=== PATIENT | male | born 1945 | race Caucasian/White ===

== ENCOUNTER 2016-06-26 22:45 | Inpatient (IN) | payer BC, OTHER ==
[~2016-06-26] VITALS: Ht 182.9 cm; Wt 84.5 kg
[~2016-06-26 22:45] MED LIST: ASPIR-TRIN325 M1 PO; ATORVASTATIN CA40 MG PO; CLOPIDOGREL75 MG PO; FOLIC ACID1 MG PO; LATANOPROST2.5 ML BOTH EYES; LISINOPRIL20 MG PO; VYTORIN 10/81 TABLET PO
[2016-06-27] VITALS (7 sets, daily range): BP systolic 126–151; BP diastolic 63–70
[2016-06-27 00:33] LABS: EOSINOPHIL (%) 1.9 % (0-5); EOSINOPHIL COUNT 0.2 K/uL (0-0.3); HEMATOCRIT 38.6 % (38.0-50.0); IMMATURE GRANULOCYTE (%) 0.8 % (0.0-0.7); IMMATURE GRANULOCYTE COUNT 0.1 K/uL; INSTRUMENT ABS NEUTROPHIL CT 6.7 K/uL; MCH 30.3 PG (29.0-34.0); MCHC 34.2 G/DL (30.0-36.0); MCV 88.7 FL (86-99); MEAN PLAT.VOLUME 8.3 uM^3 (9.0-12.4); MONOCYTE (%) 11.3 % (3-12); NEUTROPHIL (%) 74.7 % (45-76); NEUTROPHIL COUNT 6.7 K/uL (1.8-6.4); PLATELET COUNT 200 K/uL (156-360); RBC DIS.WIDTH-CV 13.9 % (11.8-14.6); RBC DIS.WIDTH-SD 45.4 % (39-53); RED BLOOD COUNT 4.35 M/uL (4.00-5.50)
[2016-06-27 00:45] LABS: INTER. NORMALIZED RATIO 1.1; PTT 26.4 (25-32)
[2016-06-27 00:46] LABS: CHLORIDE 109 mEq/L (99-109); POTASSIUM 3.5 mEq/L (3.7-5.4); SODIUM 139 mEq/L (136-147)
[2016-06-27 00:48] LABS: GLUCOSE 117 mg/dL (70-99)
[2016-06-27 00:49] LABS: ANION GAP 12 MEQ/L (2-14)
[2016-06-27 00:52] LABS: GFR ESTIMATE (CALCULATED) 46 mL/min/
[2016-06-27 00:53] LABS: UREA NITROGEN (BUN) 25 mg/dL (9-23)
[2016-06-27] MEDS ORDERED: LIPITOR80 MG PO (01:30)
[2016-06-27] MEDS ORDERED: PLAVIX75 MG PO (01:31)
[2016-06-27 03:56] LABS: SAMPLE HEMOLYSIS CHECK 0; SAMPLE ICTERIC CHECK 0; SAMPLE LIPEMIA CHECK 0
[2016-06-27 04:02] LABS: HDL CHOLESTEROL 33 MG/DL (Desirable>=40); LDL CHOLESTEROL 65 mg/dL (Desirable<100); NON-HDL CHOLESTEROL 95 mg/dL (Desirable<160); TOTAL CHOLESTEROL 128 mg/dL (Desirable<200); TRIGLYCERIDES 151 MG/DL (Normal: <150)
[2016-06-27 07:38] LABS: ALKALINE PHOSPHATASE 51 IU/L (3-129); ANION GAP 6 MEQ/L (2-14); CHLORIDE 112 MEQ/L (99-109); GFR ESTIMATE (CALCULATED) 49 mL/min/; GLUCOSE 94 mg/dL (70-99); POTASSIUM 3.6 MEQ/L (3.7-5.4); SAMPLE HEMOLYSIS CHECK 0; SAMPLE ICTERIC CHECK 0; SAMPLE LIPEMIA CHECK 0; SODIUM 140 MEQ/L (136-147); TOTAL BILIRUBIN 0.7 MG/DL (0.0-1.0); UREA NITROGEN (BUN) 22 mg/dL (9-23)
[2016-06-27 09:20] LABS: Estimated Average Glucose 134 mg/dL (70-123); HEMOGLOBIN A1c (GLYCOHEMOGLOB) 6.3 % HGB (Below 5.7)
[2016-06-28 03:27] VITALS: BP 155/87
[2016-06-28 07:38] VITALS: BP 166/79
[2016-06-28 11:16] VITALS: BP 137/63
[2016-06-28 16:03] VITALS: BP 141/72
[2016-06-28 19:50] VITALS: BP 152/76
[2016-06-29 00:25] VITALS: BP 137/75
[2016-06-29 04:14] VITALS: BP 138/65
[2016-06-29 07:53] VITALS: BP 155/80
[2016-06-29 10:54] VITALS: BP 138/66
== END 2016-06-29 14:15 | disposition home or self-care (01) | DRG 65 ==
LOC: EME → EDBD 22:45 → EME 22:45 → EDOF 06-27 02:23 → 5WEST 06-27 03:15 → 5SOUTH 06-27 11:52 → 5WEST 06-27 11:52 → 5SOUTH 06-27 23:16
PROVIDERS: Emergency Medicine; Hospitalist
DX: I63.9 Cerebral infarction, unspecified (principal); N17.9 Acute kidney failure, unspecified; I73.9 Peripheral vascular disease, unspecified; N18.2 Chronic kidney disease, stage 2 (mild); I12.9 Hypertensive chronic kidney disease with stage 1 through stage 4 chronic kidney disease, or unspecified chronic kidney disease; Z95.1 Presence of aortocoronary bypass graft; I25.10 Atherosclerotic heart disease of native coronary artery without angina pectoris; E87.6 Hypokalemia; E78.5 Hyperlipidemia, unspecified; G31.9 Degenerative disease of nervous system, unspecified; Z87.891 Personal history of nicotine dependence; I48.91 Unspecified atrial fibrillation
CPT/HCPCS: 70450; 70496; 70551; 80048; 80053; 80061; 83036; 85025; 85610; 85730; 93005; 93306; 93880; 99281; 99285; C8923; J1650; J7030

== ENCOUNTER 2016-07-02 14:58 | Inpatient (IN) | payer BC, OTHER ==
[~2016-07-02] VITALS: Ht 182.9 cm; Wt 84.4 kg
[~2016-07-02 14:58] MED LIST changes: +LIPITOR80 MG PO; +PLAVIX75 MG PO
[2016-07-02 16:02] LABS: CHLORIDE 108 mEq/L (99-109); POTASSIUM 3.8 mEq/L (3.7-5.4); SODIUM 139 mEq/L (136-147)
[2016-07-02 16:03] LABS: GLUCOSE 102 mg/dL (70-99)
[2016-07-02 16:04] LABS: BASOPHIL COUNT 0.1 K/uL (0-0.1); EOSINOPHIL (%) 0.8 % (0-5); EOSINOPHIL COUNT 0.2 K/uL (0-0.3); HEMATOCRIT 37.7 % (38.0-50.0); IMMATURE GRANULOCYTE (%) 0.6 % (0.0-0.7); IMMATURE GRANULOCYTE COUNT 0.1 K/uL; INSTRUMENT ABS NEUTROPHIL CT 15.8 K/uL; LYMPHOCYTE COUNT 0.9 K/uL (1.0-2.8); MCH 29.8 PG (29.0-34.0); MCHC 33.7 G/DL (30.0-36.0); MCV 88.5 FL (86-99); MEAN PLAT.VOLUME 8.3 uM^3 (9.0-12.4); MONOCYTE (%) 7.7 % (3-12); MONOCYTE COUNT 1.4 K/uL (0-0.8); NEUTROPHIL (%) 85.8 % (45-76); NEUTROPHIL COUNT 15.8 K/uL (1.8-6.4); PLATELET COUNT 204 K/uL (156-360); RBC DIS.WIDTH-CV 13.4 % (11.8-14.6); RBC DIS.WIDTH-SD 43.1 % (39-53); RED BLOOD COUNT 4.26 M/uL (4.00-5.50); WHITE BLOOD COUNT 18.4 K/uL (4.1-10.2)
[2016-07-02 16:05] LABS: ANION GAP 9 MEQ/L (2-14)
[2016-07-02 16:07] LABS: GFR ESTIMATE (CALCULATED) 49 mL/min/
[2016-07-02 16:08] LABS: UREA NITROGEN (BUN) 14 mg/dL (9-23)
[2016-07-02 17:39] LABS: ADD MIUA? YES; BILIRUBIN NEGATIVE; BLOOD LARGE; COLOR YELLOW ((YELLOW)); GLUCOSE (STRIP) NEGATIVE; KETONES 5; LEUKOCYTES SMALL; NITRITE NEGATIVE; PROTEIN (STRIP) 100; UROBILINOGEN 0.2 MG/DL (0.2-1.0)
[2016-07-02 18:04] LABS: RED BLOOD CELLS TNTC /HPF (0-5)
[2016-07-02 18:05] LABS: EPITHELIAL CELLS RARE /HPF; MUCUS RARE /LPF; WHITE BLOOD CELLS 40-50 /HPF (0-5)
[2016-07-02 18:06] LABS: BACTERIA 2+ /HPF; UCUL ADDED? YES
[2016-07-02] MEDS ORDERED: ATORVASTATIN CA80 MG PO (20:53)
[2016-07-03] VITALS (7 sets, daily range): BP systolic 123–171; BP diastolic 62–79
[2016-07-03 07:02] LABS: HEMATOCRIT 34.5 % (38.0-50.0); MCH 29.9 PG (29.0-34.0); MCHC 33.3 G/DL (30.0-36.0); MCV 89.8 FL (86-99); MEAN PLAT.VOLUME 8.9 uM^3 (9.0-12.4); PLATELET COUNT 203 K/uL (156-360); RBC DIS.WIDTH-CV 13.8 % (11.8-14.6); RED BLOOD COUNT 3.84 M/uL (4.00-5.50); WHITE BLOOD COUNT 20.7 K/uL (4.1-10.2)
[2016-07-03 07:31] LABS: ANION GAP 10 MEQ/L (2-14); CHLORIDE 108 MEQ/L (99-109); GFR ESTIMATE (CALCULATED) 53 mL/min/; GLUCOSE 91 mg/dL (70-99); POTASSIUM 3.4 MEQ/L (3.7-5.4); SAMPLE HEMOLYSIS CHECK 0; SAMPLE ICTERIC CHECK 0; SAMPLE LIPEMIA CHECK 0; SODIUM 140 MEQ/L (136-147); UREA NITROGEN (BUN) 13 mg/dL (9-23)
[2016-07-04 03:33] VITALS: BP 105/59
[2016-07-04 06:10] LABS: EOSINOPHIL (%) 0.8 % (0-5); EOSINOPHIL COUNT 0.1 K/uL (0-0.3); HEMATOCRIT 32.1 % (38.0-50.0); IMMATURE GRANULOCYTE (%) 0.5 % (0.0-0.7); IMMATURE GRANULOCYTE COUNT 0.1 K/uL; LYMPHOCYTE COUNT 1.4 K/uL (1.0-2.8); MCH 30.1 PG (29.0-34.0); MCHC 33.6 G/DL (30.0-36.0); MCV 89.4 FL (86-99); MEAN PLAT.VOLUME 9.2 uM^3 (9.0-12.4); MONOCYTE (%) 7.7 % (3-12); MONOCYTE COUNT 1.3 K/uL (0-0.8); NEUTROPHIL (%) 82.5 % (45-76); PLATELET COUNT 200 K/uL (156-360); RBC DIS.WIDTH-SD 46.1 % (39-53); RED BLOOD COUNT 3.59 M/uL (4.00-5.50); WHITE BLOOD COUNT 16.9 K/uL (4.1-10.2)
[2016-07-04 06:34] LABS: ANION GAP 7 MEQ/L (2-14); CHLORIDE 109 MEQ/L (99-109); GFR ESTIMATE (CALCULATED) 53 mL/min/; GLUCOSE 98 mg/dL (70-99); MAGNESIUM 1.7 mg/dl (1.3-2.7); POTASSIUM 3.5 MEQ/L (3.7-5.4); SAMPLE HEMOLYSIS CHECK 0; SAMPLE ICTERIC CHECK 0; SAMPLE LIPEMIA CHECK 0; SODIUM 140 MEQ/L (136-147); UREA NITROGEN (BUN) 17 mg/dL (9-23)
[2016-07-04 07:35] VITALS: BP 138/76
[2016-07-04 12:50] VITALS: BP 144/78
[2016-07-04 16:15] VITALS: BP 154/80
[2016-07-04 19:50] VITALS: BP 135/75
[2016-07-05 00:14] VITALS: BP 132/68
[2016-07-05 04:00] VITALS: BP 133/62
[2016-07-05 06:53] LABS: EOSINOPHIL (%) 4.1 % (0-5); EOSINOPHIL COUNT 0.4 K/uL (0-0.3); HEMATOCRIT 31.7 % (38.0-50.0); IMMATURE GRANULOCYTE (%) 0.5 % (0.0-0.7); IMMATURE GRANULOCYTE COUNT 0.1 K/uL; INSTRUMENT ABS NEUTROPHIL CT 7.6 K/uL; LYMPHOCYTE COUNT 1.5 K/uL (1.0-2.8); MCH 29.6 PG (29.0-34.0); MCHC 33.1 G/DL (30.0-36.0); MCV 89.3 FL (86-99); MEAN PLAT.VOLUME 9.1 uM^3 (9.0-12.4); MONOCYTE (%) 10.3 % (3-12); MONOCYTE COUNT 1.1 K/uL (0-0.8); NEUTROPHIL (%) 70.9 % (45-76); NEUTROPHIL COUNT 7.6 K/uL (1.8-6.4); PLATELET COUNT 213 K/uL (156-360); RBC DIS.WIDTH-CV 13.8 % (11.8-14.6); RBC DIS.WIDTH-SD 45.4 % (39-53); RED BLOOD COUNT 3.55 M/uL (4.00-5.50); WHITE BLOOD COUNT 10.7 K/uL (4.1-10.2)
[2016-07-05 08:14] LABS: ANION GAP 4 MEQ/L (2-14); CHLORIDE 109 MEQ/L (99-109); GFR ESTIMATE (CALCULATED) 58 mL/min/; GLUCOSE 96 mg/dL (70-99); MAGNESIUM 1.7 mg/dl (1.3-2.7); POTASSIUM 3.6 MEQ/L (3.7-5.4); SAMPLE HEMOLYSIS CHECK 0; SAMPLE ICTERIC CHECK 0; SAMPLE LIPEMIA CHECK 0; SODIUM 139 MEQ/L (136-147); UREA NITROGEN (BUN) 15 mg/dL (9-23)
[2016-07-05 08:19] VITALS: BP 165/80
[2016-07-05 12:00] VITALS: BP 157/78
[2016-07-05] MEDS ORDERED: BACTRIM,SEPT1 TABLET PO (12:40)
== END 2016-07-05 13:57 | disposition home or self-care (01) | DRG 872 ==
LOC: EME 14:58 → EDOF 22:20 → 5WEST 22:20
PROVIDERS: Hospitalist; Internal Medicine
DX: A02.1 Salmonella sepsis (principal); I72.8 Aneurysm of other specified arteries; N18.3 Chronic kidney disease, stage 3 (moderate); Z95.1 Presence of aortocoronary bypass graft; N30.01 Acute cystitis with hematuria; E87.6 Hypokalemia; I12.9 Hypertensive chronic kidney disease with stage 1 through stage 4 chronic kidney disease, or unspecified chronic kidney disease; I25.10 Atherosclerotic heart disease of native coronary artery without angina pectoris; Z86.73 Personal history of transient ischemic attack (TIA), and cerebral infarction without residual deficits; I73.9 Peripheral vascular disease, unspecified; E78.5 Hyperlipidemia, unspecified; Z87.891 Personal history of nicotine dependence
CPT/HCPCS: 74176; 80048; 81003; 83605; 83735; 85025; 85027; 87040; 87077; 99281; 99285; G0378; J0696; J7030; J7050

== ENCOUNTER 2016-07-19 21:18 | Emergency (ER) | payer BC, OTHER ==
[~2016-07-19] VITALS: Ht 182.9 cm; Wt 81.3 kg
[~2016-07-19 21:18] MED LIST changes: +ATORVASTATIN CA80 MG PO; +BACTRIM,SEPT1 TABLET PO
[2016-07-19 22:20] LABS: HEMATOCRIT 36.7 % (38.0-50.0); MCH 30.5 PG (29.0-34.0); MCHC 33.8 G/DL (30.0-36.0); MCV 90.2 FL (86-99); PLATELET COUNT 214 K/uL (156-360); RBC DIS.WIDTH-CV 14.4 % (11.8-14.6); RBC DIS.WIDTH-SD 46.9 % (39-53); RED BLOOD COUNT 4.07 M/uL (4.00-5.50); WHITE BLOOD COUNT 11.4 K/uL (4.1-10.2)
[2016-07-19 22:28] LABS: CHLORIDE 111 mEq/L (99-109); POTASSIUM 4.3 mEq/L (3.7-5.4); SODIUM 141 mEq/L (136-147)
[2016-07-19 22:30] LABS: GLUCOSE 142 mg/dL (70-99)
[2016-07-19 22:31] LABS: ANION GAP 10 MEQ/L (2-14)
[2016-07-19 22:34] LABS: GFR ESTIMATE (CALCULATED) 40 mL/min/
[2016-07-19 22:35] LABS: UREA NITROGEN (BUN) 22 mg/dL (9-23)
[2016-07-19 22:41] LABS: TROP-I INTERPRETATION NEGATIVE; TROPONIN-I 0.01 ng/mL (0.0-0.30)
[2016-07-19 23:09] LABS: ADD MIUA? YES; BILIRUBIN NEGATIVE; BLOOD MODERATE; COLOR YELLOW ((YELLOW)); GLUCOSE (STRIP) NEGATIVE; KETONES NEGATIVE; LEUKOCYTES LARGE; NITRITE NEGATIVE; PROTEIN (STRIP) 30; SPECIFIC GRAVITY 1.019 (1.000-1.030); UROBILINOGEN 0.2 MG/DL (0.2-1.0)
[2016-07-20] MEDS ORDERED: LEVAQUIN750 MG PO (00:31)
[2016-07-20 00:44] LABS: WHITE BLOOD CELLS TNTC /HPF (0-5)
[2016-07-20 00:45] LABS: BACTERIA 2+ /HPF; CASTS NONE SEEN /LPF; CRYSTALS NONE SEEN; EPITHELIAL CELLS RARE /HPF; MUCUS NONE SEEN /LPF; UCUL ADDED? YES
[2016-07-20 00:49] VITALS: BP 150/83
== END 2016-07-20 00:56 | disposition home or self-care (01) ==
LOC: EME 21:18
PROVIDERS: Emergency Medicine
DX: N39.0 Urinary tract infection, site not specified (principal); G93.40 Encephalopathy, unspecified; E11.9 Type 2 diabetes mellitus without complications; E78.5 Hyperlipidemia, unspecified; I10 Essential (primary) hypertension; Z87.442 Personal history of urinary calculi; Z86.73 Personal history of transient ischemic attack (TIA), and cerebral infarction without residual deficits; Z95.1 Presence of aortocoronary bypass graft; Z87.891 Personal history of nicotine dependence
CPT/HCPCS: 71020; 80048; 81003; 84484; 85027; 87077; 87086; 93005; 99281; 99284

== ENCOUNTER 2016-10-16 14:42 | Inpatient (IN) | payer BC, OTHER ==
[~2016-10-16] VITALS: Ht 182.9 cm; Wt 78.5 kg
[~2016-10-16 14:42] MED LIST changes: +LEVAQUIN750 MG PO
[2016-10-16 16:27] LABS: BASOPHIL COUNT 0.1 K/uL (0-0.1); EOSINOPHIL COUNT 0.9 K/uL (0-0.3); HEMATOCRIT 37.1 % (38.0-50.0); IMMATURE GRANULOCYTE (%) 0.3 % (0.0-0.7); INSTRUMENT ABS NEUTROPHIL CT 8.6 K/uL; LYMPHOCYTE COUNT 1.4 K/uL (1.0-2.8); MCH 29.9 PG (29.0-34.0); MCHC 33.4 G/DL (30.0-36.0); MCV 89.4 FL (86-99); MONOCYTE (%) 5.2 % (3-12); MONOCYTE COUNT 0.6 K/uL (0-0.8); NEUTROPHIL (%) 74.3 % (45-76); NEUTROPHIL COUNT 8.6 K/uL (1.8-6.4); PLATELET COUNT 206 K/uL (156-360); RBC DIS.WIDTH-CV 13.4 % (11.8-14.6); RBC DIS.WIDTH-SD 44.1 % (39-53); RED BLOOD COUNT 4.15 M/uL (4.00-5.50); WHITE BLOOD COUNT 11.5 K/uL (4.1-10.2)
[2016-10-16 16:37] LABS: CHLORIDE 108 mEq/L (99-109)
[2016-10-16 16:38] LABS: POTASSIUM 4.4 mEq/L (3.7-5.4); SODIUM 140 mEq/L (136-147)
[2016-10-16 16:39] LABS: GLUCOSE 119 mg/dL (70-99)
[2016-10-16 16:41] LABS: ANION GAP 10 MEQ/L (2-14)
[2016-10-16 16:41] LABS: PROTHROMBIN TIME 10.6 (9.2-11.2); PTT 26.7 (25-32)
[2016-10-16 16:43] LABS: GFR ESTIMATE (CALCULATED) 33 mL/min/
[2016-10-16 16:44] LABS: UREA NITROGEN (BUN) 28 mg/dL (9-23)
[2016-10-16 16:50] LABS: TROP-I INTERPRETATION NEGATIVE; TROPONIN-I 0.02 ng/mL (0.0-0.30)
[2016-10-16 16:55] LABS: ADD MIUA? YES; BILIRUBIN NEGATIVE; BLOOD SMALL; COLOR YELLOW ((YELLOW)); GLUCOSE (STRIP) NEGATIVE; KETONES NEGATIVE; LEUKOCYTES NEGATIVE; NITRITE NEGATIVE; PROTEIN (STRIP) NEGATIVE; SPECIFIC GRAVITY 1.013 (1.000-1.030)
[2016-10-16 17:00] LABS: BACTERIA RARE /HPF; EPITHELIAL CELLS RARE /HPF; MUCUS TRACE /LPF; RED BLOOD CELLS 0-5 /HPF (0-5); WHITE BLOOD CELLS 0-5 /HPF (0-5)
[2016-10-16] MEDS ORDERED: CYANOCOBAL1000 MCG/2 IM (18:14)
[2016-10-16 21:24] VITALS: BP 205/96
[2016-10-16 23:47] VITALS: BP 198/103
[2016-10-17 04:02] VITALS: BP 202/94
[2016-10-17 06:04] LABS: HEMATOCRIT 35.9 % (38.0-50.0); MCH 30.4 PG (29.0-34.0); MCHC 34.3 G/DL (30.0-36.0); MCV 88.9 FL (86-99); MEAN PLAT.VOLUME 8.3 uM^3 (9.0-12.4); PLATELET COUNT 198 K/uL (156-360); RBC DIS.WIDTH-CV 13.2 % (11.8-14.6); RBC DIS.WIDTH-SD 43.5 % (39-53); RED BLOOD COUNT 4.04 M/uL (4.00-5.50); WHITE BLOOD COUNT 15.6 K/uL (4.1-10.2)
[2016-10-17 07:39] VITALS: BP 162/73
[2016-10-17 11:14] VITALS: BP 154/69
[2016-10-17 14:18] VITALS: BP 163/75
[2016-10-17 20:10] VITALS: BP 177/80
[2016-10-17 23:31] VITALS: BP 171/83
[2016-10-18 04:10] VITALS: BP 150/79
[2016-10-18 07:48] VITALS: BP 158/85
[2016-10-18 11:22] VITALS: BP 147/86
[2016-10-18 14:15] LABS: HDL CHOLESTEROL 35 MG/DL (Desirable>=40); LDL CHOLESTEROL 71 mg/dL (Desirable<100); NON-HDL CHOLESTEROL 96 mg/dL (Desirable<160); TOTAL CHOLESTEROL 131 mg/dL (Desirable<200); TRIGLYCERIDES 125 MG/DL (Normal: <150)
[2016-10-19 07:43] LABS: Estimated Average Glucose 128 mg/dL (70-123); HEMOGLOBIN A1c (GLYCOHEMOGLOB) 6.1 % HGB (Below 5.7)
== END 2016-10-18 14:30 | DRG 66 ==
LOC: EME 14:42 → EDOF 18:41 → 5SOUTH 20:45
PROVIDERS: Emergency Medicine; Hospitalist
DX: I63.9 Cerebral infarction, unspecified (principal); E11.22 Type 2 diabetes mellitus with diabetic chronic kidney disease; I12.9 Hypertensive chronic kidney disease with stage 1 through stage 4 chronic kidney disease, or unspecified chronic kidney disease; N18.3 Chronic kidney disease, stage 3 (moderate); Z86.73 Personal history of transient ischemic attack (TIA), and cerebral infarction without residual deficits; E78.5 Hyperlipidemia, unspecified; R32 Unspecified urinary incontinence; Z87.891 Personal history of nicotine dependence; Z95.1 Presence of aortocoronary bypass graft; I73.9 Peripheral vascular disease, unspecified; I25.10 Atherosclerotic heart disease of native coronary artery without angina pectoris
CPT/HCPCS: 70450; 70551; 71010; 80048; 80061; 81003; 83036; 84484; 85025; 85027; 85610; 85730; 87086; 93005; 99281; 99285; J1644; J7030; J7040

== ENCOUNTER → 2016-11-06 | Outpatient (CLI) | payer BC, OTHER ==
[~2016-11-06] VITALS: Ht 182.9 cm; Wt 78.5 kg
[~2016-11-06] MED LIST changes: +APRESOLINE50 MG PO; +CYANOCOBAL1000 MCG/2 IM; +LOPRESSOR25 MG PO
== END | disposition home or self-care (01) ==
LOC: AMB 10:00
PROC: B24BZZ4 Ultrasonography of Heart with Aorta, Transesophageal (ICD-10-PCS; principal; 2016-11-06)
DX: I69.954 Hemiplegia and hemiparesis following unspecified cerebrovascular disease affecting left non-dominant side (principal); I34.0 Nonrheumatic mitral (valve) insufficiency; I35.1 Nonrheumatic aortic (valve) insufficiency; I35.8 Other nonrheumatic aortic valve disorders; I65.23 Occlusion and stenosis of bilateral carotid arteries; I10 Essential (primary) hypertension; I25.10 Atherosclerotic heart disease of native coronary artery without angina pectoris; Z95.1 Presence of aortocoronary bypass graft; E78.5 Hyperlipidemia, unspecified
CPT/HCPCS: 93312; J3010